=== PATIENT | male | born 1950 | race Caucasian/White ===

== ENCOUNTER 2017-09-26 12:24 | Emergency (ER) | payer MEDICARE ==
[2017-09-26 13:28] LABS: #Lymphocytes 1.4 thou/uL (1.20-3.40); #Monocytes 0.9 thou/uL (0.11-0.59); #Neutrophils 8.2 thou/uL (1.40-6.50); %Basophils 0.4 % (0.0-1.0); %Eosinophils 0.4 % (0.0-10.0); %Lymphocytes 13.3 % (21.0-51.0); %Monocytes 8.6 % (0.0-10.0); %Neutrophils 77.4 % (42.0-75.0); Hemoglobin 14.4 g/dL (14.0-18.0); Mean Corpuscular HGB CONC 32.6 g/dL (32.0-36.0); Mean Corpuscular Hemoglobin 30.1 pg (27.0-31.0); Mean Corpuscular Volume 92.3 fl (80.0-94.0); Mean Platelet Volume 6.3 fL (7.4-10.4); Platelet Count 349 thou/uL (130-400); RBC Distribution Width 12.9 % (11.5-14.5); White Blood Cell (WBC) Count 10.6 thou/uL (4.8-10.8)
[2017-09-26 13:30] LABS: Base Excess-Venous 3.6 mmol/L (0 (+/- 2.5)); Bicarbonate (HCO3v) 30.4 mmol/L (1.0-85.0); CO2 Tension (PvCO2) 52.7 mmHg (41.0-51.0); Calcium, Ionized 1.18 mmol/L (1.12-1.32); Hemoglobin - Calc 15.5 g/dL (12.0-18.0); O2 Tension (PvO2) 20.8 mmHg (35.0-45.0); Potassium 3.6 mmol/L (3.4-4.7); pH (Venous) 7.369 (7.35-7.45); vO2 Saturation-calc 31.3 % (94-98)
--- NOTE | 2017-09-26 13:48 | RAD ---
SINGLE VIEW OF THE CHEST: COMPARISON: None. HISTORY: Shortness of breath and dyspnea. FINDINGS: A single view of the chest shows a normal-size cardiomediastinal silhouette. There appears to be air space opacity projecting over the right lower lobe which may represent an infiltrate. No obvious ple ural effusion is seen. IMPRESSION: Right lower lobe pneumonia. POS: [facility]
[2017-09-26 13:55] LABS: ALT (SGPT) 12 U/L (8-55); AST (SGOT) 17 U/L (5-34); Alkaline Phosphatase 56 U/L (40-150); Anion Gap 13 mmol/L (10-20); BUN (Urea Nitrogen) 9 mg/dL (8.4-25.7); Bilirubin, Total 0.4 mg/dL (0.2-1.2); CKMB 1.4 ng/mL (0-6.6); Calc. Creatinine Clearance 0 mL/min (70-130); Calcium 10.1 mg/dL (7.8-10.44); Carbon Dioxide 29 mmol/L (23-31); Chloride 101 mmol/L (98-107); Estimated GFR-MDRD Greater than 90; Globulin 3.4 g/dL (2.4-3.5); Glucose 97 mg/dL (80-115); Potassium 3.6 mmol/L (3.5-5.1); Protein, Total 7.4 g/dL (5.8-8.1); Sodium 139 mmol/L (136-145); Troponin I Less than 0.010 ng/mL (< 0.028)
== END 2017-09-26 15:00 | disposition home or self-care (01) ==
LOC: ERS 12:24
DX: J18.9 Pneumonia, unspecified organism (principal); F17.200 Nicotine dependence, unspecified, uncomplicated
CPT/HCPCS: 71045; 80053; 82330; 82553; 82803; 83880; 84484; 85025; 93005; 94760

== ENCOUNTER 2018-04-19 20:20 | Inpatient (IN) | payer MEDICARE ==
[2018-04-19 20:39] LABS: #Basophils 0.1 thou/uL (0.0-0.2); #Eosinphils 0.2 thou/uL (0.0-0.7); #Lymphocytes 1.5 thou/uL (1.20-3.40); #Monocytes 0.7 thou/uL (0.11-0.59); #Neutrophils 4.6 thou/uL (1.40-6.50); %Basophils 1.1 % (0.0-1.0); %Eosinophils 2.8 % (0.0-10.0); %Lymphocytes 20.9 % (21.0-51.0); %Monocytes 9.9 % (0.0-10.0); %Neutrophils 65.3 % (42.0-75.0); Hemoglobin 15.3 g/dL (14.0-18.0); Mean Corpuscular HGB CONC 33.1 g/dL (32.0-36.0); Mean Corpuscular Hemoglobin 31.2 pg (27.0-31.0); Mean Corpuscular Volume 94.2 fL (78.0-98.0); Mean Platelet Volume 6.8 fL (7.4-10.4); Platelet Count 268 thou/uL (130-400); RBC Distribution Width 13.1 % (11.5-14.5); White Blood Cell (WBC) Count 7.1 thou/uL (4.8-10.8)
[2018-04-19 21:02] LABS: ALT (SGPT) 9 U/L (8-55); AST (SGOT) 17 U/L (5-34); Albumin 4.5 g/dL (3.4-4.8); Alkaline Phosphatase 51 U/L (40-150); Anion Gap 15 mmol/L (10-20); BUN (Urea Nitrogen) 13 mg/dL (8.4-25.7); Bilirubin, Total 0.5 mg/dL (0.2-1.2); Calc. Creatinine Clearance 0 mL/min (70-130); Calcium 9.9 mg/dL (7.8-10.44); Carbon Dioxide 24 mmol/L (23-31); Chloride 105 mmol/L (98-107); Estimated GFR-MDRD 81; Globulin 2.9 g/dL (2.4-3.5); Glucose 107 mg/dL (80-115); Potassium 4.4 mmol/L (3.5-5.1); Protein, Total 7.4 g/dL (5.8-8.1); Sodium 140 mmol/L (136-145)
[2018-04-19 21:19] LABS: CKMB 1.7 ng/mL (0-6.6); Troponin I Less than 0.010 ng/mL (< 0.028)
--- NOTE | 2018-04-19 21:21 | CT ---
CT OF THE BRAIN WITHOUT CONTRAST: 04/19/18 COMPARISON: None. HISTORY: Syncope. TECHNIQUE: Multiple contiguous axial images were obtained in a CT of the brain without contrast. FINDINGS: There are scattered hypodensities in the subcortical and periventricular white matter, likely seconda ry to small vessel ischemic disease. A remote lacunar infarction is seen in the left basal ganglia. T here is no evidence of hydrocephalus, intracranial hemorrhage or extra-axial fluid collection. The calvarium and overlying soft tissues are unremarkable. The visualized paranasal sinuses and masto id air cells are well aerated. IMPRESSION: No evidence of acute intracranial abnormality. POS: [facility]
[2018-04-20] MEDS ORDERED: Ondansetron PF 4 MG/2 ML Vial IVP PRN (00:11)
[2018-04-20] MEDS ORDERED: Acetaminophen 325 MG TAB PO PRN (00:11)
[2018-04-20] MEDS ORDERED: Sodium Chloride 0.9% 1,000 ML IV SCH (00:11)
[2018-04-20] MEDS ORDERED: Ondansetron ODT 4 MG TAB SL PRN (00:11)
[2018-04-20 00:26] VITALS: BMI 24.6
--- NOTE | 2018-04-20 00:54 | PDOC.FPRHP ---
- History of Present Illness Chief Complaint: syncopal episode History of Present Illness: 68 yo M presents for first time syncopal episode. Per , episode occurred at dinner where he was talking and suddenly had a staring spell where he slumped into the chair, eyes open, and was unresponsive to verbal. Episodes occurred three times over a 3 minute period each lasting about 45 seconds. After the third episode resolved, his tried to shake his arm. Subsequently he stiffened, had whole body shaking followed by a 15 minute period of grogginess and confusion. Patient does not remember anything before or during the episode but woke up feeling very sweaty and confused. He denies loss of urine or bowels. Denies prior episode of this. No family hx of seizures or cardiac events. - Allergies/Adverse Reactions Allergies Allergy/AdvReac Type Severity Reaction Status Date / Time No Known Drug Allergies Allergy Verified 04/20/18 00:20 - Home Medications Medication Instructions Recorded Confirmed Type Budesonide [Budesonide EC] 3 mg PO MWF 04/20/18 04/20/18 History - History PMHx: Collagenous colitis PSHx: cataracts, oral surgery FHx: No seizures, sister has arrythmia requiring ablation Social: EtOH socially, no drug use, no tobacco use (ED records contradict this, will reclarify) - Review of Systems General: denies: fever/chills, weight/appetite/sleep changes Eyes: denies: vision changes ENT: denies: nasal congestion, rhinorrhea Respiratory: denies: cough, congestion, shortness of breath Cardiovascular: denies: chest pain, palpitation, orthopnea Gastrointestinal: denies: nausea, vomiting, diarrhea, constipation Genitourinary: denies: dysuria, discharge Skin: denies: rashes Musculoskeletal: denies: pain, tenderness, stiffness Neurological: reports: syncope, weakness Psychological: denies: anxiety, depression - Vital signs BP: [155/72] RR: [71] Tmax: [98.1] Pox: [97]% on [RA] Wt: [82] - Physical Exam Constitutional: NAD, awake, alert and oriented HEENT: normocephalic and atraumatic, PERRLA, EOMI, conjunctiva clear, no scleral icterus Neck: supple, FROM, no LAD, no bruits Chest: no-tender to palpation Heart: RRR, normal S1/S2, no edema Lungs: CTAB, no respiratory distress, good air movement Abdomen: soft, non-tender Musculoskeletal: normal structure, normal tone Neurological: no focal deficit, CN II-XII intact, normal sensation Skin: no rash/lesions, capillary refill <2 seconds Heme/Lymphatic: no unusual bruising or bleeding, no purpura Psychiatric: normal mood and affect, good judgment and insight FMR H&P: Results - Labs Result Diagrams: 04/20/18 04:05 04/20/18 04:05 Lab results: WBC 7.1 thou/uL (4.8-10.8) 04/19/18 20:30 Hgb 15.3 g/dL (14.0-18.0) 04/19/18 20:30 Hct 46.1 % (42.0-52.0) 04/19/18 20:30 MCV 94.2 fL (78.0-98.0) 04/19/18 20:30 Plt Count 268 thou/uL (130-400) 04/19/18 20:30 Neutrophils % 65.3 % (42.0-75.0) 04/19/18 20:30 Sodium 140 mmol/L (136-145) 04/19/18 20:30 Potassium 4.4 mmol/L (3.5-5.1) 04/19/18 20:30 Chloride 105 mmol/L (98-107) 04/19/18 20:30 Carbon Dioxide 24 mmol/L (23-31) 04/19/18 20:30 BUN 13 mg/dL (8.4-25.7) 04/19/18 20:30 Creatinine 0.92 mg/dL (0.6-1.3) 04/19/18 20:30 Glucose 107 mg/dL (80-115) 04/19/18 20:30 Calcium 9.9 mg/dL (7.8-10.44) 04/19/18 20:30 Total Bilirubin 0.5 mg/dL (0.2-1.2) 04/19/18 20:30 AST 17 U/L (5-34) 04/19/18 20:30 ALT 9 U/L (8-55) 04/19/18 20:30 Alkaline Phosphatase 51 U/L (40-150) 04/19/18 20:30 CK-MB (CK-2) 1.7 ng/mL (0-6.6) 04/19/18 20:30 Serum Total Protein 7.4 g/dL (5.8-8.1) 04/19/18 20:30 Albumin 4.5 g/dL (3.4-4.8) 04/19/18 20:30 FMR H&P: A/P - Problem List (1) Episode of syncope Current Visit: Yes Status: Acute Code(s): R55 - SYNCOPE AND COLLAPSE (2) Collagenous colitis Current Visit: Yes Status: Acute Code(s): K52.831 - COLLAGENOUS COLITIS - Plan 68 yo M with syncopal episode # Syncopal episode due to suspected new onset seizure -Cardiogenic causes less likely with EKG showing RBBB and trop negative x1 -Plan to obtain prior EKG to compare, trend trops, FLP, carotid U/S -Seizure more likely given nature of symptoms -Will obtain EEG, neuro consult -Will order Mg, Phos, Prolactin -Seizure precautions placed, NPO for now # Collagenous colitis -resume home budesonide DVT ppx: SCDs (SHARMAINE score 1, no indication for pharmacologic ppx) discussed with dr. tatum FMR H&P: Upper Level - Pertinent history 68yo extremely healthy male with a witnessed episode of unresponsiveness and shaking followed by confusion for 10-15 minutes. Patient was having dinner when he became unresponsive and started staring blankly. Episode occured twice more in rapid succession, all totalling 45-60 seconds. After this he became rigid and reports whole body shaking. Patient does not remember any of this and has no recollection until EMS arrived on scene. No bowel or bladder incontinence. No personal or family hx of seizure DO. - Pertinent findings Vitals: 155/72 mmHg 71 bpm 19 RR 98.1F 97% on RA Gen: A&Ox3 HEENT: NC/AT CV: RRR, no murmurs Pulm: CTA-B GI: soft, nonTTP, non distended Skin: senile purpura on BUE CT Head: negative for acute intracranial pathology EKG: RBBB seen on old EKG D-dimer: 0.3 trop: negative x 1 CBC, CMP, Coags negative - Plan Date/Time: 04/20/18 0045 Suspected first time seizure: ambiguous history concerning for absence or tonic- clonic seizure but syncope is likely as well. CT negative for subdural hematomas. CMP reveals no electrolyte abnormalities. He has not had any head trauma or been ill recently. He takes no medications that would lower seizure threshold. Will order EEG and possibly MRI for tomorrow. Neurology will be consulted for further recommendations. Will admit to telemetry for concern about cardiogenic syncope due to arrhythmia. Symptoms not induced by a positional change indicative of orthostatic hypotension. EKG is normal outside of an old RBBB. Will discuss the possibility of TTE after monitoring. Check TSH , Mag, Phos, and prolactin. Carotid doppler ordered. Collagenous Colitis: resume home budesonide I, Angel Luis Del Angel, have evaluated this patient and agree with findings/plan as outlined by internet application developer resident. Pertinent changes/additions are listed here. Attending Addendum - Attending Addendum Date/Time: 04/20/18 0510 I personally evaluated the patient and discussed the management with Dr. Russell I agree with the History, Examination, Assessment and Plan documented above with any addition or exceptions noted below.68 yo male who was transported by air to [facility] from [place], [place] ER for an episode of unresponsiveness while eating associated with flailing movements of upper and lower extremities no urinary incontinence or biting of tongue,patient was groggy after episode. No cardiac dysrhythmia appreciated, a nurse at the scene noted an questionable slow pulse. EKG showed RBBB. Patient admitted with for observation and telemetry monitoring. History suggestive of seizure and patient to be admitted cardiac monitoring and consider further neurological and cardiac evaluation as above.
[2018-04-20] MEDS: Sodium Chloride 0.9% 1,000 ML IV SCH ×2 (01:38→03:29)
[2018-04-20 02:15] LABS: Troponin I Less than 0.010 ng/mL (< 0.028)
[2018-04-20 04:35] LABS: #Basophils 0.1 thou/uL (0.0-0.2); #Eosinphils 0.2 thou/uL (0.0-0.7); #Lymphocytes 1.1 thou/uL (1.20-3.40); #Monocytes 0.8 thou/uL (0.11-0.59); %Basophils 1.2 % (0.0-1.0); %Eosinophils 2.6 % (0.0-10.0); %Lymphocytes 18.3 % (21.0-51.0); %Neutrophils 64.9 % (42.0-75.0); Hemoglobin 13.8 g/dL (14.0-18.0); Mean Corpuscular HGB CONC 32.6 g/dL (32.0-36.0); Mean Corpuscular Hemoglobin 30.6 pg (27.0-31.0); Mean Platelet Volume 6.7 fL (7.4-10.4); Platelet Count 247 thou/uL (130-400); RBC Distribution Width 13.2 % (11.5-14.5); Red Blood Cell (RBC) Count 4.51 mill/uL (4.70-6.10); White Blood Cell (WBC) Count 6.2 thou/uL (4.8-10.8)
[2018-04-20 04:44] LABS: Hemoglobin A1c 4.9 % (4.0-6.0)
[2018-04-20 04:54] LABS: ALT (SGPT) 8 U/L (8-55); AST (SGOT) 13 U/L (5-34); Albumin 3.9 g/dL (3.4-4.8); Alkaline Phosphatase 46 U/L (40-150); Anion Gap 12 mmol/L (10-20); BUN (Urea Nitrogen) 5 mg/dL (8.4-25.7); Bilirubin, Total 0.7 mg/dL (0.2-1.2); Calc. Creatinine Clearance 110 mL/min (70-130); Calcium 9.2 mg/dL (7.8-10.44); Carbon Dioxide 24 mmol/L (23-31); Cardiac Risk 2.9 (Less than 4.5); Chloride 107 mmol/L (98-107); Cholesterol 170 mg/dl (< 200 Desired); Estimated GFR-MDRD Greater than 90; Globulin 2.3 g/dL (2.4-3.5); Glucose 100 mg/dL (80-115); HDL Cholesterol 59 mg/dL (>60 Neg Risk); LDL Cholesterol, Calculated 98 mg/dL; Phosphorus 3.7 mg/dL (2.3-4.7); Protein, Total 6.2 g/dL (5.8-8.1); Sodium 139 mmol/L (136-145); Triglycerides 67 mg/dL (Less than 150)
[2018-04-20 04:55] LABS: Troponin I Less than 0.010 ng/mL (< 0.028)
--- NOTE | 2018-04-20 06:30 | PDOC.FM ---
- Subjective Subjective: Patient doing well. No significant overnight events. Patient states he has not had any further syncopal or seizure-like episodes. He briefly remembers events after episodes, although he can not recall things with clarity. He remembers the nurse that came up to check on him at the restaurant. Denies chest pain, palpitations, shortness of breath. - Objective MAR Reviewed: Yes Vital Signs & Weight: Vital Signs (12 hours) Temp Pulse Resp BP BP Pulse Ox 04/20/18 04:13 98.4 F 68 18 141/67 H 94 L 04/19/18 23:58 97.6 F 68 18 158/69 H 97 Weight Weight 82.463 kg Result Diagrams: 04/20/18 04:05 04/20/18 04:05 EKG Reviewed by me: Yes Radiology Reviewed by me: Yes <Alayna Salas - Last Filed: 04/20/18 09:12> - Objective Vital Signs & Weight: Vital Signs (12 hours) Pulse Resp BP Pulse Ox 04/21/18 11:02 58 L 16 165/76 H 97 Weight Weight 81.647 kg I&O: 04/20/18 04/21/18 04/22/18 06:59 06:59 05:59 Intake Total 500 480 Output Total 300 1400 Balance 200 -920 Result Diagrams: 04/21/18 04:03 04/21/18 04:03 <Grace Aldridge - Last Filed: 04/21/18 22:39> Phys Exam - Physical Examination Constitutional: NAD HEENT: moist MMs Neck: supple Respiratory: clear to auscultation bilateral Cardiovascular: RRR, no significant murmur Gastrointestinal: soft, no distention Musculoskeletal: no edema, pulses present Neurological: non-focal Psychiatric: normal affect, A&O x 3 Skin: no rash, cap refill <2 seconds <Alayna Salas - Last Filed: 04/20/18 09:12> Dx/Plan (1) Collagenous colitis Code(s): K52.831 - COLLAGENOUS COLITIS Status: Acute (2) Episode of syncope Code(s): R55 - SYNCOPE AND COLLAPSE Status: Acute - Plan Plan: 68 yo M with possible syncopal episode vs new onset seizure 1. Syncopal episode due to suspected new onset seizure -EKG showing RBBB c/w old EKG, trops neg x3 and no risk factors -Telemetry monitoring did show episodes of bradycardia down to the 40's; consult cardiology for recommendations related to bradycardia -Trops neg x3, FLP nml, Mg and P nml -TSH nml -Carotid u/s nml -Seizure possibility given nature of symptoms, although prolactin level low -EEG pending; will consider consulting neurology for recs -Seizure precautions place 2. Collagenous colitis -resume home budesonide DVT ppx: SCDs (SHARMAINE score 1, no indication for pharmacologic ppx) Dispo: Stable. Consult cardiology to further evaluate if episodes related to bradycardia. <Alayna Salas - Last Filed: 04/20/18 09:12> Attending Addendum - Attending Addendum Date/Time: 04/20/18 10:00 I personally evaluated the patient and discussed the management with Dr. Salas I agree with the History, Examination, Assessment and Plan documented above with any addition or exceptions noted below. 68 yo male admitted for syncopal event. HD#1 Patient denies any episodes overnight. VS reviewed. Tele monitoring reviewed. Labs reviewed. 1. Syncopal event: Resolved. Unknown etiology but per history appears to be cardiac related. On review of tele monitoring patient with several episodes of bradycardia. ECHO ordered. Will consult cards. Remains asymptomatic. 2. Collagenous colitis ABrayMD <Grace Aldridge - Last Filed: 04/21/18 22:39>
--- NOTE | 2018-04-20 08:26 | ULT ---
BILATERAL CAROTID DUPLEX ULTRASOUND: HISTORY: Carotid stenosis, new-onset seizure. FINDINGS: Real-time color Doppler evaluation of the right and left carotid systems shows extensive plaque forma tion, particularly on the right. On the right side, peak systolic velocities of the common carotid a rtery is 118 cm/s. Internal carotid velocities were 107 cm/s with external carotid velocities of 132 cm/s. On the left side, peak systolic velocities of the common carotid were 138 cm/s. Internal carotid hilary ocities are 111 cm/s and external carotid velocities 95 cm/s. Vertebral flow is antegrade bilaterally. IMPRESSION: No evidence of hemodynamically significant stenosis of either internal carotid artery. POS: [facility]
[2018-04-20] MEDS ORDERED: Enoxaparin Sodium 30 MG/0.3 ML SYRINGE SC SCH (09:00)
[2018-04-20] MEDS ORDERED: Lactated Ringer's 1,000 ML IV SCH (10:15)
[2018-04-20] MEDS ORDERED: Iopamidol 370 76% 100 ML VIAL ONE (13:42)
--- NOTE | 2018-04-20 16:14 | CT ---
CT ANGIOGRAM OF THE [place]: 04/20/18 HISTORY: Syncope. COMPARISON: None. TECHNIQUE: CT angiogram of the head is performed in the axial plane. Three dimensional reformatted images are s ubmitted for interpretation. FINDINGS: NONCONTRAST HEAD CT: Chronic small vessel ischemic changes. Stable hypoattenuation inferior to the left lentiform nucleus. No parenchymal hemorrhage or extra-axial hematoma. Cortical nicolas-white matter differentiation appear s to be preserved. No evidence of hydrocephalus. Calvarium is intact. Adequate aeration of the sinuse s and mastoid air cells. No pathologic enhancement of the brain parenchyma. Bilateral ocular lens implants are noted. Both tulio bes are intact. Retrobulbar fat is preserved. Symmetric attenuation of the optic nerves and ocular re ctus muscles. Aerodigestive tract is patent. CT ANGIOGRAM: There is symmetric enhancement and luminal diameter of the distal cervical and intracranial internal carotid arteries. ANTERIOR CIRCULATION: Symmetric enhancement and luminal diameter of the A1 and M1 segments. Proximal A2 segments and proxim al MCA branches are also unremarkable. POSTERIOR CIRCULATION: The right vertebral artery is dominant. Limited evaluation of the PICA artery origin. Based on the im ages provided, no obvious abnormality in either PICA artery origin. Both vertebral arteries supply no rmal appearing basilar artery. The right ASBESTOS TEXTILE SUPERVISOR may have a origin. The right EXERCISE INSTRUCTOR and left P1 segm ent appear to be grossly unremarkable. IMPRESSION: No significant stenosis at the [place]. POS: [facility]
--- NOTE | 2018-04-20 17:43 | CON ---
DATE OF CONSULTATION: 04/20/2018 REASON FOR CONSULTATION: Syncope. HISTORY OF PRESENT ILLNESS: Mr. Martinez is a very pleasant 68-year-old gentleman who recently had a s yncopal episode. His recants the history. They were at a restaurant when he had a daze. He di d not completely pass out. No chest pain or pressure noted. This happened 3 to 4 times. This laste d for several minutes. EMS was summoned. He has had some strips noted in the mid 40s while in the hospital. He is not on beta pascual therapy or calcium channel blockade. He has no previous history of underlying coronary disease. His overal l LVEF does appear normal. PAST MEDICAL HISTORY: Colitis, cataract surgery, oral surgery. SOCIAL HISTORY: No current tobacco or alcohol use. ALLERGIES: None. REVIEW OF SYSTEMS: Ten-point review of systems was reviewed and as above, otherwise negative. PHYSICAL EXAMINATION: VITAL SIGNS: Blood pressure 157/70, pulse 56, temperature 98.2. GENERAL: Patient is a pleasant male who is in no acute distress. The patient appears his stated age. VITAL SIGNS: NEUROLOGIC: The patient is alert and oriented times 3 with no focal neurologic deficits. HEENT: Sclerae without icterus. Mouth has moist mucous membranes with normal pallor. NECK: No JVD. Carotid upstroke brisk. No bruits bilaterally. LUNGS: Clear to auscultation with unlabored respirations. BACK: No scoliosis or kyphosis. CARDIAC: Regular rate and rhythm with normal S1 and S2. No S3 or S4 noted. No significant rubs, murmurs, thrills, or gallops noted throughout the precordium. PMI is not displaced. There is no parasternal heave. ABDOMEN: Soft, nontender, nondistended. No peritoneal signs present. No hepatosplenomegaly. No abnormal striae. EXTREMITIES: 2+ femoral and 2+ dorsalis pedis pulses. No cyanosis, clubbing, or edema. SKIN: No gross abnormalities. PERTINENT LABORATORY DATA: Hemoglobin 13.8, creatinine 0.75. IMPRESSION: Syncope. RECOMMENDATIONS: Based on his history, it does not appear to be consistent with seizure. There was no loss of bowel or bladder. This may be due to dysrhythmia. His EKG does show right bundle branch block. First and foremost, I asked Mr. Martinez not to drive given his recent syncope with no warning. I also told him not to place himself in harm's way. I would recommend a 3-week outpatient event re kristin. His LVEF does appear normal. He has no current symptoms suggesting angina. He is agreeable . From my standpoint, the plan is to send the monitor to his home. We will also recommend followup with me in 1 week.
[2018-04-21 04:45] LABS: #Basophils 0.1 thou/uL (0.0-0.2); #Eosinphils 0.2 thou/uL (0.0-0.7); #Lymphocytes 1.3 thou/uL (1.20-3.40); #Monocytes 0.8 thou/uL (0.11-0.59); #Neutrophils 3.3 thou/uL (1.40-6.50); %Basophils 1.1 % (0.0-1.0); %Eosinophils 3.4 % (0.0-10.0); %Lymphocytes 22.4 % (21.0-51.0); %Monocytes 13.6 % (0.0-10.0); %Neutrophils 59.5 % (42.0-75.0); Hemoglobin 13.6 g/dL (14.0-18.0); Mean Corpuscular HGB CONC 32.5 g/dL (32.0-36.0); Mean Corpuscular Volume 95.5 fL (78.0-98.0); Mean Platelet Volume 7.1 fL (7.4-10.4); Platelet Count 238 thou/uL (130-400); RBC Distribution Width 13.1 % (11.5-14.5); White Blood Cell (WBC) Count 5.6 thou/uL (4.8-10.8)
[2018-04-21 04:55] LABS: ALT (SGPT) Less than 7 U/L (8-55); AST (SGOT) 12 U/L (5-34); Albumin 3.8 g/dL (3.4-4.8); Alkaline Phosphatase 44 U/L (40-150); Anion Gap 11 mmol/L (10-20); BUN (Urea Nitrogen) 13 mg/dL (8.4-25.7); Bilirubin, Total 0.6 mg/dL (0.2-1.2); Calc. Creatinine Clearance 95 mL/min (70-130); Calcium 9.1 mg/dL (7.8-10.44); Carbon Dioxide 26 mmol/L (23-31); Chloride 107 mmol/L (98-107); Estimated GFR-MDRD 90; Globulin 2.4 g/dL (2.4-3.5); Glucose 86 mg/dL (80-115); Potassium 4.1 mmol/L (3.5-5.1); Protein, Total 6.2 g/dL (5.8-8.1); Sodium 140 mmol/L (136-145)
--- NOTE | 2018-04-21 06:16 | PDOC.FM ---
- Subjective Subjective: Mr. Martinez is resting comfortably in bed, he had no complaints overnight and would like to go home today - Objective Vital Signs & Weight: Vital Signs (12 hours) Temp Pulse Resp BP Pulse Ox 04/21/18 04:00 97.8 F 56 L 18 143/65 H 99 04/21/18 00:00 98.1 F 55 L 20 117/56 L 96 04/20/18 20:00 98 Weight Weight 81.647 kg I&O: 04/19/18 04/20/18 04/21/18 06:59 06:59 06:59 Intake Total 500 Output Total 300 800 Balance 200 -800 Result Diagrams: 04/21/18 04:03 04/21/18 04:03 <William Oakley - Last Filed: 04/21/18 07:56> - Objective Vital Signs & Weight: Vital Signs (12 hours) Temp Pulse Resp BP BP BP BP 04/21/18 08:13 98 F 57 L 16 156/70 H 149/70 H 159/67 H 04/21/18 04:00 97.8 F 56 L 18 143/65 H 04/21/18 00:00 98.1 F 55 L 20 117/56 L Pulse Ox 04/21/18 08:13 97 04/21/18 04:00 99 04/21/18 00:00 96 Weight Weight 81.647 kg I&O: 04/20/18 04/21/18 04/22/18 06:59 06:59 05:59 Intake Total 500 480 Output Total 300 1400 Balance 200 -920 Result Diagrams: 04/21/18 04:03 04/21/18 04:03 <Grace Aldridge - Last Filed: 04/21/18 22:45> Phys Exam - Physical Examination Constitutional: NAD HEENT: moist MMs, oral pharynx no lesions Respiratory: no wheezing, no rales, no rhonchi, clear to auscultation bilateral Cardiovascular: RRR, no significant murmur, no rub Gastrointestinal: soft, non-tender, no distention Musculoskeletal: no edema, pulses present Neurological: non-focal, normal sensation, moves all 4 limbs Psychiatric: normal affect Skin: no rash <William Oakley - Last Filed: 04/21/18 07:56> Dx/Plan (1) Episode of syncope Code(s): R55 - SYNCOPE AND COLLAPSE Status: Acute (2) Collagenous colitis Code(s): K52.831 - COLLAGENOUS COLITIS Status: Acute - Plan Plan: 1. Syncopal episode due to suspected arrhythmia -EKG showing RBBB c/w old EKG -Telemetry monitoring did show episodes of bradycardia down to the 40's -Trops neg x3, FLP nml, Mg and P nml -TSH nml, Carotid u/s nml -Seizure seems more unlikely now, prolactin level low -Cardiology would like to see him outpatient -overnight tele: no episodes of SVT rut in the 50s, one asymptomatic low in the 40s 2. Collagenous colitis -continue home budesonide DVT ppx: SCDs (SHARMAINE score 1, no indication for pharmacologic ppx) Dispo: Stable. DC home today without events <William Oakley - Last Filed: 04/21/18 07:56> Attending Addendum - Attending Addendum Date/Time: 04/21/18931 I personally evaluated the patient and discussed the management with Dr. Oakley I agree with the History, Examination, Assessment and Plan documented above with any addition or exceptions noted below. 68 yo male admitted for syncopal event. HD#2 Patient remains asymptomatic. Brief SVT yesterday afternoon but no other evidence of rhythm. Bradycardia noted again. VS reviewed. Tele monitoring reviewed. Labs reviewed. 1. Syncopal event likely related to cardiac rhythm (rut-arrhythmia): Resolved. Remains asymptomatic. Will have event monitor placed. Cards evaluated and ok to d/c to home with follow up on Monday. Precautions discussed. Ok to d/c today. CTA negative for neurologic cause of syncope. 2. Collagenous colitis ABrayMD <Grace Aldridge - Last Filed: 04/21/18 22:45>
[2018-04-21 08:18] VITALS: TEMP 98
--- NOTE | 2018-04-21 09:18 | PDOC.CTH ---
Cardiology Progress Note - Subjective Patient not in room. - Objective Vital Signs Temp Pulse Resp BP BP BP BP 04/21/18 08:13 98 F 57 L 16 156/70 H 149/70 H 159/67 H 04/21/18 04:00 97.8 F 56 L 18 143/65 H 04/21/18 00:00 98.1 F 55 L 20 117/56 L Pulse Ox 04/21/18 08:13 97 04/21/18 04:00 99 04/21/18 00:00 96 Weight 180 lb 04/20/18 04/21/18 04/22/18 06:59 06:59 05:59 Intake Total 500 480 Output Total 300 1400 Balance 200 -920 - Telemetry Telemetry Rhythm: SR/SB; 18 beat run SVT - Labs Result Diagrams: 04/21/18 04:03 04/21/18 04:03 Troponin/CKMB CK-MB (CK-2) 1.7 ng/mL (0-6.6) 04/19/18 20:30 Troponin I Less than 0.010 ng/mL (< 0.028) 04/20/18 04:04 - Assessment/Plan 1. Syncope 2. PSVT 3. Sinus bradycardia Patient not on floor and not able to visit. If asymptomatic meaning no dizziness , lightheadedness or palpitations, recommend discharge with 3 week EVR. Will continue to monitor to see if PSVT recurrent. If yes, RFA might be best option since he probably won't tolerate bblockers or CCB given underlying sinus bradycardia. As previously stated by Dr. Sam, patient should not be driving. We will contact for f/u appt and monitor arrangement.
[2018-04-21 11:03] VITALS: BP 165/76
--- NOTE | 2018-04-23 09:35 | DIS-2 ---
DATE OF ADMISSION: 04/20/2018 DATE OF DISCHARGE: 04/21/2018 RESIDENT: William Oakley D.O, ADMITTING ATTENDING: Dr. Nicholas Louis DISCHARGE ATTENDING: Dr. Grace Aldridge CONSULTATIONS: Cardiology, Dr. Holland Sam. PROCEDURES: 1. Brain CT - Impression: No evidence of acute intracranial abnormality. 2. CT [place] angio with contrast - Impression: No significant stenosis at the [place]. 3. Echocardiogram significant for left ventricular ejection fraction estimated at 55-60%, mild merari l regurgitation, mild tricuspid regurgitation. 4. Carotid Doppler - no evidence of hemodynamically significant stenosis of either internal carotid artery. PRIMARY DIAGNOSIS: Syncopal episode due to suspected arrhythmia. SECONDARY DIAGNOSES: Collagenous colitis. DISCHARGE MEDICATIONS: Budesonide 3 mg p.o. on Monday, Monday and Monday. DISCONTINUED MEDICATIONS: None. HISTORY OF PRESENT ILLNESS AND HOSPITAL COURSE: Mr. Martinez is a 68-year-old male that presented for a first time syncopal episode. Per , the episode occurred at dinner when he was talking and sudd akash had a staring spell where he slumped into the chair. Eyes open and was unresponsive to verbal e pisodes, occurred 3 times over 3 minute period lasting about 45 seconds. After the third episode res olved his tried to shake him and he stiffened, had whole body shaking, followed by 15 minute per iod of grogginess and confusion. The patient does not remember any of this. During his hospital sta y, he did not have any repeat episodes. He was monitored on telemetry and Cardiology was consulted. He was monitored on telemetry and had a 10-beat episode of SVT and consistent bradycardia, mostly in the 50s, but ranging down into the 40s. He is asymptomatic with all of these bradycardia episodes. He remained stable. Cardiology evaluated him and recommended outpatient treatment with a monitored event recorder. Follow up in 1 week. DISPOSITION: Stable. DISCHARGE INSTRUCTIONS: 1. Location: Home. 2. Diet: Heart healthy. 3. Activity: As tolerated. 4. Followup: Follow up with Dr. Holland Sam within 7 days. Follow up with PCP, Dr. James pizano, in 7 days as well.
== END 2018-04-21 12:03 | disposition home or self-care (01) | DRG 309 ==
LOC: ERS 20:20 → 2SW 04-20 00:03 → OBSVTOIN 04-20 00:03 → 2NO 04-20 18:47
PROVIDERS: ADMIT Family Medicine; ATTEND Family Medicine
DX: I49.9 Cardiac arrhythmia, unspecified (principal); I47.1 Supraventricular tachycardia; K52.831 Collagenous colitis
CPT/HCPCS: 36415; 70450; 70496; 80053; 80061; 82553; 83036; 83735; 84100; 84146; 84443; 84484; 85025; 85379; 93005; 93306; 93880; 94760; 99406

== ENCOUNTER 2018-05-22 09:21 | Outpatient (CLI) | payer MEDICARE ==
--- NOTE | 2018-05-22 11:38 | BD ---
DEXA BONE MINERAL DENSITOMETRY EXAM, SCAN: HISTORY: A 68-year-old male with age-related osteoporosis. FINDINGS: DEXA bone scan is performed using a hologic bone mineral density unit. Lumbar Spine: BMD (g/cm2) L1 1.43 T-Score: 3.2 Z-Score: 4.1 L2 1.45 T-Score: 3.3 Z-Score: 4.2 L3 1.62 T-Score: 4.7 Z-Score: 5.6 L4 1.84 T-Score: 6.8 Z-Score: 7.8 L1-L4 1.61 T-Score: 4.7 Z-Score: 5.6 Left Hip: Femoral Neck: 1.08 T-Score: 1.1 Z-Score: 2.3 Total Femur: 1.13 T-Score: 0.7 Z-Score: 1.3 Impression: Increased bone mineral density. The patient does not have a significant increased risk of osteoporot ic fractures. POS: [facility]
== END 2018-05-22 09:22 | disposition home or self-care (01) ==
LOC: BICMAMMO 09:21
PROVIDERS: ATTEND Emergency Medicine
DX: Z13.820 Encounter for screening for osteoporosis (principal); F19.20 Other psychoactive substance dependence, uncomplicated
CPT/HCPCS: 77080

== ENCOUNTER 2022-09-20 06:55 | Outpatient (CLI) | payer MEDICARE | END 2022-09-20 06:56 | disposition home or self-care (01) | LOC: BICULT 06:55 | PROVIDERS: ATTEND Emergency Medicine | DX: Z13.820 Encounter for screening for osteoporosis (principal); Z13.6 Encounter for screening for cardiovascular disorders; Z87.891 Personal history of nicotine dependence; M85.851 Other specified disorders of bone density and structure, right thigh; Z91.89 Other specified personal risk factors, not elsewhere classified | CPT/HCPCS: 76775; 77080 ==

== ENCOUNTER 2023-05-24 08:19 | Outpatient (CLI) | payer MEDICARE ==
[2023-05-24] MEDS ORDERED: Iopamidol 370 76% 100 ML VIAL ONE (10:10)
== END 2023-05-24 08:20 | disposition home or self-care (01) ==
LOC: CT 08:19
PROVIDERS: ATTEND Internal Medicine Cardiovascular Disease
DX: I77.9 Disorder of arteries and arterioles, unspecified (principal); I65.23 Occlusion and stenosis of bilateral carotid arteries; M47.812 Spondylosis without myelopathy or radiculopathy, cervical region
CPT/HCPCS: 70498; 82565; Q9967

== ENCOUNTER 2023-12-13 14:11 | Outpatient (CLI) | payer MEDICARE | END 2023-12-13 14:12 | disposition home or self-care (01) | LOC: RAD 14:11 | PROVIDERS: ATTEND Physician Assistant | DX: R05.1 Acute cough (principal); J94.8 Other specified pleural conditions | CPT/HCPCS: 71046 ==